=== PATIENT | male | born 1985 | race Caucasian/White ===

== ENCOUNTER 2020-07-25 20:42 | Emergency (ER) | payer BC ==
--- NOTE | 2020-07-25 21:10 | ER Document Report ---
ED Medical Screen (RME) - General Chief Complaint: Palpitations Stated Complaint: REPORTS RAPID HEART RATE Time Seen by Provider: 07/25/20 21:01 Primary Care Provider: PAULINO MCMILLAN [Primary Care Provider] - Follow up as needed Mode of Arrival: Ambulatory Information source: Patient Notes: 35-year-old male presented to ED for palpitations since 7 PM tonight. He has green d an episode about 12 years ago when he was in the [employer] and imaging were an overnight hold to monitor. He states he is also had feeling like aching in his jaw for the last 3 or 4 nights when he sleeping. He thought it felt almost like he was grinding his teeth. He has had several episodes where he had to catch his breath in the last couple days. states that just before he came in and that he was clammy and sweaty and had some periods of shortness of breath. He states he does smoke 10 cigarettes a day he is trying to quit him and his are trying to quit together. He states he does drink 1 or 2 beer a day during the week and then on the weekends he drinks about 6 or so a day. He does not use any illicit drugs. He states he is not having any "chest pain at this time " I have greeted and performed a rapid initial assessment of this patient. A comprehensive ED assessment and evaluation of the patient, analysis of test results and completion of medical decision making process will be conducted by an additional ED providers. - Related Data Allergies/Adverse Reactions: No Known Allergies Allergy (Unverified 07/25/20 21:01) Past Medical History - Social History Frequency of alcohol use: Occasional Drug Abuse: None Physical Exam - Vital signs Vitals: Temp Pulse Resp BP Pulse Ox 98.9 F 123 H 15 127/99 H 97 07/25/20 21:01 07/25/20 21:01 07/25/20 21:01 07/25/20 21:01 07/25/20 21:01 Course - Vital Signs Vital signs: Temp Pulse Resp BP Pulse Ox 98.9 F 123 H 15 127/99 H 97 07/25/20 21:01 07/25/20 21:01 07/25/20 21:01 07/25/20 21:01 07/25/20 21:01 Doctor's Discharge - Discharge Referrals: PAULINO MCMILLAN [Primary Care Provider] - Follow up as needed
[2020-07-25 21:44] LABS: ABSOLUTE BASOPHILS # (AUTO) 0.1 10^3/uL (0.0-0.2); ABSOLUTE EOSINOPHILS # (AUTO) 0.1 10^3/uL (0.0-0.6); ABSOLUTE LYMPHOCYTES (AUTO) 1.6 10^3/uL (0.5-4.7); ABSOLUTE MONOCYTES (AUTO) 0.5 10^3/uL (0.1-1.4); ABSOLUTE NEUT (AUTO) 10.3 10^3/uL (1.7-8.2); BASOPHILS % (AUTO) 0.4 % (0-2); EOSINOPHILS % (AUTO) 0.9 % (0-6); HEMATOCRIT 48.2 % (37.9-51.0); LYMPHOCYTES % (AUTO) 12.6 % (13-45); MEAN CORPUSCULAR HGB CONC 35.3 g/dL (32.0-36.0); MEAN CORPUSCULAR VOLUME 85 fl (80-97); MONOCYTES % (AUTO) 3.9 % (3-13); PLATELET COUNT 253 10^3/uL (150-450); RED BLOOD COUNT 5.67 10^6/uL (4.35-5.55); RED CELL DISTRIBUTION WIDTH 13.4 % (11.5-14.0); SEGMENTED NEUTROPHILS % (AUTO) 82.2 % (42-78); TOTAL CELLS COUNTED % (AUTO) 100 %; WHITE BLOOD COUNT 12.5 10^3/uL (4.0-10.5)
--- NOTE | 2020-07-25 21:51 | ER Document Report ---
ED General - General Chief Complaint: Palpitations Stated Complaint: REPORTS RAPID HEART RATE Time Seen by Provider: 07/25/20 21:01 Primary Care Provider: PAULINO MCMILLAN [Primary Care Provider] - Follow up as needed Mode of Arrival: Ambulatory - HPI Context: This is a 35-year-old male who presents to the emergency department for palpitations and rapid heart rate since 1900 hrs. tonight. Patient has his in the room and she provides some history also. Patient states that he noticed onset of palpitations and a rapid heart rate around 1900 hrs. today. Patient denies chest pain, shortness of breath, chest pressure, jaw discomfort, arm discomfort. Patient states that he has not been using any stimulants and states he does not use any drugs. Patient states that he drinks 1-2 beers a day during the week and then drinks about 6 beers a day on the weekends. Patient denies any new stimulant or homeopathic/jrsv-llh-juyegut supplement use. Patient denies use of diet pills or other diet medications. Patient denies syncope. Patient denies long car or plane trips or history of blood clots in his lungs or lower extremities. Patient's stated there was a couple of times where he seemed to get a little diaphoretic and "spacier' this evening after the onset of symptoms. Patient states nothing makes his symptoms worse and nothing seems to make the symptoms better. Patient states his heart rate is usually in the 70s according to his smart watch. Associated symptoms: Other - See HPI Exacerbated by: Other - See HPI Relieved by: Other - See HPI Similar symptoms previously: Yes - Patient states he had an episode of tachycardia about 12 years ago Recently seen / treated by doctor: No - Related Data Allergies/Adverse Reactions: No Known Allergies Allergy (Unverified 07/25/20 21:01) Past Medical History - General Information source: Patient - Social History Smoking Status: Current Every Day Smoker Frequency of alcohol use: Occasional Drug Abuse: None Lives with: Spouse/Significant other Family History: Reviewed & Not Pertinent Patient has suicidal ideation: No Patient has homicidal ideation: No Review of Systems - Review of Systems Constitutional: No symptoms reported EENT: No symptoms reported Cardiovascular: See HPI Respiratory: No symptoms reported Gastrointestinal: No symptoms reported Genitourinary: No symptoms reported Male Genitourinary: No symptoms reported Musculoskeletal: No symptoms reported Skin: No symptoms reported Hematologic/Lymphatic: No symptoms reported Neurological/Psychological: No symptoms reported -: Yes All other systems reviewed and negative Physical Exam - Vital signs Vitals: Temp Pulse Resp BP Pulse Ox 98.9 F 123 H 15 127/99 H 97 07/25/20 21:01 07/25/20 21:01 07/25/20 21:01 07/25/20 21:01 07/25/20 21:01 - Notes Notes: CONSTITUTIONAL [Vital signs reviewed, Patient appears comfortable, Alert and oriented X 3, Nor mal stature. Patient appears morbidly obese] HEAD [Atraumatic, Normocephalic.] EYES [Eyes are normal to inspection, No discharge from eyes, Extraocular muscles intact, Sclera are normal, Conjunctiva are normal.] NECK [Normal ROM, No jugular venous distention, No meningeal signs] RESPIRATORY CHEST [Chest is nontender, Breath sounds normal, No respiratory distress.] CARDIOVASCULAR [RRR, No murmurs, Normal S1 S2, No rub, No gallop.] ABDOMEN [Abdomen is nontender, No pulsatile masses, No other masses, Bowel sounds normal, No distension, No peritoneal signs, No hernias.] BACK [There is no CVA Tenderness, There is no tenderness to palpation, Normal inspection.] UPPER EXTREMITY [Inspection normal, No cyanosis, No clubbing, No edema, 2+ radial pulses.] LOWER EXTREMITY [Inspection normal, No cyanosis, No clubbing, No edema, No calf tenderness, 2+ femoral pulses.] NEURO [No focal motor deficits, No focal sensory deficits, Speech normal.] SKIN [Skin is warm, Skin is dry, Skin is normal color.] LYMPHATIC [No adenopathy in neck.] PSYCHIATRIC [Normal affect. ] Course - Re-evaluation Re-evalutation: 07/26/20 00:03 Patient appears to responded well to 1 L of IV fluids. Currently patient's heart rate is 65, blood pressure is 130/88, respiratory rate is 13 and O2 sats are 98% on room air. Results of ED MSE discussed with patient and patient's all questions were answered prior to discharge. Emergency signs and symptoms, reasons to return to the emergency department discussed with patient and patient's . - Vital Signs Vital signs: Temp Pulse Resp BP Pulse Ox 98.9 F 123 H 11 L 128/75 H 97 07/25/20 21:01 07/25/20 21:01 07/25/20 23:31 07/25/20 23:31 07/25/20 23:31 - Laboratory Result Diagrams: 07/25/20 21:29 07/25/20 21:29 Laboratory results interpreted by me: 07/25/20 07/25/20 21:29 21:29 WBC 12.5 H RBC 5.67 H Lymph % (Auto) 12.6 L Absolute Neuts (auto) 10.3 H Seg Neutrophils % 82.2 H Carbon Dioxide 21 L Glucose 182 H - EKG Interpretation by Me Additional EKG results interpreted by me: 07/25/20 21:49 EKG obtained on 07/25/2020 at 2120 hrs. was interpreted by this MD. Findings sinus tachycardia, rate 116, normal axis, P waves proceed QRS complexes, QRS complexes appear narrow, PA interval is within normal limits, QTC is 401, there are no obvious patterns of ST segment elevation or depression present to suggest acute myocardial ischemia or infarction. Impression sinus tachycardia with nonspecific ST segments. 07/26/20 00:04 Repeat EKG obtained on 07/25/2020 at 2342 hrs. was interpreted by this MD. Findings: Normal sinus rhythm, rate 65, normal axis, PA interval appears to be within normal limits, P waves proceed QRS complexes, QRS complexes appear narrow, QTC is 379, there are no obvious patterns of ST segment elevation or depression or reciprocal changes to suggest acute myocardial ischemia or infarction. When compared to the EKG from earlier this visit, the only change of significance is that the rate is slower. Overall the gross morphology between the 2 EKGs is the same. Impression normal sinus rhythm with nonspecific EKG changes. Discharge - Discharge Clinical Impression: Palpitations Condition: Stable Disposition: HOME, SELF-CARE Instructions: Palpitations (Irregular or Rapid Heartrate) ([facility]) Additional Instructions: Return to the Emergency Department without delay if any worse. HOME CARE INSTRUCTIONS & INFORMATION: Thank you for choosing us for your medical needs. We hope you're satisfied with the care you received. After you leave, you must properly care for your problem and, at the same time, observe its progress. Any condition can change. Some illnesses can change rapidly over hours or days. If your condition worsens, return to the Emergency Department or see your physician promptly. ABOUT YOUR X-RAYS AND EKG'S: If you had an EKG or X-rays taken, they have been read by the Emergency Physician. The X-rays and EKG's will also be read by a Radiologist or Restaurant Attendant within 24 hours. If discrepancies are noted, you will be notified by telephone. Please be certain the ED has a correct telephone number & address where you can be reached. Also, realize that some fractures or abnormalities do not show up on initial X-rays. If your symptoms continue, see your physician. ABOUT YOUR LABORATORY TEST: If you had laboratory tests, the results have been reviewed by the Emergency Physician. Some test results (for example cultures) may not be available for several days. You will be contacted if any test result shows you need additional treatment. Please be certain the ED has a correct telephone number and address where you can be reached. ABOUT YOUR MEDICATIONS: You will receive instructions on how to take your medicine on the prescription label you receive. Additional information may be provided by the Pharmacy. If you have questions afterwards, call the ED for clarification or further instructions. Some prescribed medications may cause drowsiness. Do not perform tasks such as driving a car or operating machinery without consulting your Pharmacist. If you feel you need a refill of pain medication, your condition will need re-evaluation. Please do not call for a refill of any medication. ABOUT YOUR SIGNATURE: Signature of this document acknowledges to followin. Understanding that you received emergency treatment and that you may be released before al medical problems are known or treated. Please be certain the ED has a correct phone number & address where you can be reached. 2. Acknowledgement that you will arrange for follow-up care as recommended. 3. Authorization for the Emergency Physician to provide information to your follow-up Physician in order to maximize your care. AT ANY TIME, IF YOUR SYMPTOMS CHANGE SIGNIFICANTLY OR WORSEN OR YOU DEVELOP NEW SYMPTOMS, RETURN TO THE EMERGENCY DEPARTMENT IMMEDIATELY FOR RE-EVALUATION. OUR GOAL IS TO PROVIDE EXCELLENT MEDICAL CARE! WE HOPE THAT WE HAVE MET YOUR EXPECTATIONS DURING YOUR EMERGENCY DEPARTMENT VISIT AND THAT YOU FEEL YOU HAVE RECEIVED EXCELLENT CARE! Referrals: PAULINO MCMILLAN [Primary Care Provider] - Follow up as needed TOYIN WILLARD MD [ACTIVE STAFF] - Follow up as needed (Call 07/26/2020 to arrange follow-up appointment.)
--- NOTE | 2020-07-25 22:14 | RADIOLOGY REPORT (SQ) ---
EXAM DESCRIPTION: XR CHEST 2 VIEWS COMPLETED DATE/TME: 07/25/2020 21:01 CLINICAL HISTORY: 35 years, Male, palpitations COMPARISON: None. NUMBER OF VIEWS: 2 TECHNIQUE: PA and lateral views the chest were obtained LIMITATIONS: None. FINDINGS: The heart size is within normal limits. Lungs are clear. There is no evidence of pleural effusion or pneumothorax. Visualized bony structures appear intact. IMPRESSION: Negative study copyright 2010 [employer]- All Rights Reserved
[2020-07-25 22:15] LABS: ALBUMIN 4.8 g/dL (3.5-5.0); ALKALINE PHOSPHATASE 83 U/L (38-126); ANION GAP 15 (5-19); ASPARTATE AMINO TRANSFERASE 29 U/L (17-59); BILIRUBIN,DIRECT 0.4 mg/dL (0.0-0.4); BILIRUBIN,TOTAL 0.5 mg/dL (0.2-1.3); BLOOD UREA NITROGEN 7 mg/dL (7-20); CARBON DIOXIDE 21 mmol/L (22-30); CHLORIDE 104 mmol/L (98-107); CREATINE KINASE 118 U/L (55-170); GLUCOSE 182 mg/dL (75-110); POTASSIUM 3.8 mmol/L (3.6-5.0); TOTAL PROTEIN 7.7 g/dL (6.3-8.2)
[2020-07-25 22:27] LABS: APPEARANCE,URINE CLEAR; BILIRUBIN,URINE NEGATIVE (NEGATIVE); COLOR,URINE STRAW; GLUCOSE, URINE NEGATIVE (NEGATIVE); KETONES,URINE NEGATIVE (NEGATIVE); LEUKOCYTE ESTERASE,URINE NEGATIVE (NEGATIVE); NITRITE,URINE NEGATIVE (NEGATIVE); PROTEIN,URINE NEGATIVE (NEGATIVE); URINE SPECIFIC GRAVITY 1.003; UROBILINOGEN,URINE NEGATIVE mg/dL (<2.0)
[2020-07-25 22:30] LABS: URINE AMPHETAMINES SCREEN NEGATIVE; URINE BARBITURATES SCREEN NEGATIVE; URINE BENZODIAZEPINES SCREEN NEGATIVE; URINE COCAINE SCREEN NEGATIVE; URINE MARIJUANA (THC) SCREEN NEGATIVE; URINE METHADONE SCREEN NEGATIVE; URINE PHENCYCLIDINE SCREEN NEGATIVE
[2020-07-25] MEDS ORDERED: NORMAL SALINE 1000 ML 1,000 ML IV ONE (22:33)
[2020-07-25 23:45] VITALS: BP 128/75
--- NOTE | 2020-07-26 06:34 | EKG REPORT ---
SEVERITY:- NORMAL ECG - SINUS RHYTHM : Confirmed by: Damon Isabel MD 26-Jul-2020 06:33:51
--- NOTE | 2020-07-26 06:35 | EKG REPORT ---
SEVERITY:- ABNORMAL ECG - SINUS TACHYCARDIA NONSPECIFIC T ABNORMALITIES, ANT-LAT LEADS : Confirmed by: Damon Isabel MD 26-Jul-2020 06:34:08
== END 2020-07-26 00:15 | disposition home or self-care (01) ==
LOC: ER 20:42
DX: R00.2 Palpitations (principal); F17.200 Nicotine dependence, unspecified, uncomplicated
CPT/HCPCS: 93005; 99285; 96360; 36415; 80307 ×2; 82550; 83735; 84443; 85025; 80053; 81001; 71046; 93010; J7030